=== PATIENT | male | born 1945 | race Caucasian/White ===

== ENCOUNTER → 2022-05-14 14:01 | Outpatient (CLI) | payer MEDICARE, SELFPAY ==
--- NOTE | ~2022-05-14 | XR_ITS ---
XR hip RT min 2V DATE: 05/14/2022 14:17 INDICATION: Right hip pain for 3 months. No injury. TECHNIQUE: AP and lateral views of right hip COMPARISON: None FINDINGS: There appears to be an inferolaterally displaced approximately 1.5 x 3.5 cm fracture fragme nt of the inferior aspect of the right acetabulum. CT pelvis examination is recommended for more defi nitive evaluation. The fracture margins are smooth, suggesting this is likely chronic. No recent right hip fracture or dislocation is noted otherwise. Normal alignment at the pubic symphysis and sacroiliac joints. No evidence of avascular necrosis or bone destruction of the right femoral head. IMPRESSION: Possible chronic inferolaterally displaced right acetabular fracture; recommend CT pelvis for more definitive evaluation Reviewed, dictated and finalized at location B. TROSTATIC PAINTER IMPRESSION: Possible chronic inferolaterally displaced right acetabular fractur e; recommend CT pelvis for more definitive evaluation
== END ==
PROVIDERS: PCP Internal Medicine; Visit Provider Clinical Nurse Specialist
DX: M25.551 Pain in right hip (principal)
CPT/HCPCS: 73502

== ENCOUNTER → 2022-05-23 08:35 | Outpatient (CLI) | payer MEDICARE, SELFPAY ==
--- NOTE | ~2022-05-23 | CT_ITS ---
Noncontrast CT scan of the pelvis CLINICAL HISTORY: Acetabular fracture TECHNIQUE: Axial noncontrast imaging of the pelvis was performed. Sagittal and coronal reformatted im ages were constructed. Dose reduction technique was used on this scan by utilizing automated exposure control and iterative reconstruction technique. FINDINGS: No acute fracture or dislocation is seen. There is a somewhat triangular area of ossificati on just anterior inferior to the right humeral head, which correlates with the plain radiographic fin ding. This is well corticated, and chronic in appearance. There is no defect or asymmetry of the righ t acetabulum as compared to the left side. Bilateral hip joint spaces are preserved. No joint effusio n. No other soft tissue abnormality seen. Small lipoma noted within the right adductor jonathan muscle. Vi sualized musculature is otherwise unremarkable. No fluid collection evident. 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 There is no defect or asymmetry of the right acetabulum as compared to the left side. No acute fracture or dislocation. Small intramuscular lipoma in the right adductor musculature, as noted above. Reviewed, dictated and finalized at location . 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 T here is no defect or asymmetry of the right acetabulum as compared to the left side. No acute fracture or dislocation. Small intramuscular lipoma in the right adductor musculature, as noted above.
== END ==
PROVIDERS: PCP Internal Medicine; Visit Provider Clinical Nurse Specialist
DX: S32.409A Unspecified fracture of unspecified acetabulum, initial encounter for closed fracture (principal); X58.XXXA Exposure to other specified factors, initial encounter
CPT/HCPCS: 72192

== ENCOUNTER 2022-11-11 09:06 | Outpatient (CLI) | payer MEDICARE, SELFPAY ==
[2022-11-11 20:26] LABS: Basophils Percent Auto 0.5 % (0.2-1.2); Eosinophils Absolute Auto 0.3 K/mm3 (0-0.3); Hematocrit 46.8 % (42.0-52.0); Hemoglobin 15.3 g/dL (14.0-18.0); Immature Granulocyte Absolute 0.03 K/mm3 (0.00-0.031); Immature Granulocyte Percent A 0.4 % (0-0.5); Lymphocytes Absolute Auto 1.64 K/mm3 (0.9-3.2); Mean Corpuscular HGB Conc 32.7 g/dl (32-36); Mean Corpuscular Hemoglobin 31.8 pg (26-34); Mean Corpuscular Volume 97.3 fl (80-100); Mean Platelet Volume 12.5 fl (7.4-10.4); Monocytes Absolute Auto 0.8 K/mm3 (0.1-0.6); Monocytes Percent Auto 10.5 % (2.6-8.5); Neutrophils Percent Auto 63.6 % (45.5-73.1); Platelet Count Result 149 k/mm3 (150-375); Red Blood Count 4.81 M/mm3 (4.6-6.20); Red Cell Distribution Width 13.6 % (11.5-14.5); White Blood Count 7.8 K/mm3 (4.5-10.0)
[2022-11-11 21:35] LABS: Alanine Aminotransferase 31 U/L (6-50); Albumin Level 4.4 g/dL (3.5-5.1); Alkaline Phosphatase 92 U/L (38-126); Anion Gap 6 mmol/L (8-16); Aspartate Amino Transferase 37 U/L (17-59); Bilirubin,Total 1.2 mg/dL (0.2-1.3); Blood Urea Nitrogen 16 mg/dL (9-20); Calcium 9.6 mg/dL (8.4-10.2); Carbon Dioxide 31 mmol/L (22-30); Chloride 103 mmol/L (98-107); Cholesterol 167 mg/dL (0-200); Estimated Glomerular Filt Rate > 60; Glucose 102 mg/dL (65-110); HDL Direct 44 mg/dL; Potassium 4.2 mmol/L (3.4-5.0); Sodium 140 mmol/L (137-145); Triglycerides 136 mg/dL (<150)
[2022-11-11 21:53] LABS: LDL Cholesterol Direct 88 mg/dL
[2022-11-11 22:09] LABS: Prostate Specific Antigen 1.2 ng/mL (< OR = 4.0)
== END 2022-11-11 09:07 | disposition home or self-care (01) ==
LOC: ANHGOSHLAB 09:10
PROVIDERS: PCP Nurse Practitioner; Visit Provider Nurse Practitioner
DX: R53.83 Other fatigue (principal); I10 Essential (primary) hypertension; Z12.5 Encounter for screening for malignant neoplasm of prostate; E78.5 Hyperlipidemia, unspecified
CPT/HCPCS: 36415; 80053; 80061; 82607; 82728; 84153; 84443; 85025; G0103

== ENCOUNTER 2023-03-17 08:55 | Outpatient (CLI) | payer MEDICARE, SELFPAY ==
[2023-03-17 19:41] LABS: Appearance Urine Clear (Clear); Bilirubin Urine Negative (Negative); Blood Urine Negative (Negative); Color Urine Yellow (Yellow); Glucose Urine UA Negative (Negative); Ketones Urine Negative (Negative); Leukocyte Esterase Ur Negative LEU/UL (NEGATIVE); Nitrate Urine Negative (Negative); Protein Urine Negative (Negative); Specific Grav Ur 1.018 (1.001-1.035); pH Urine 6.5 (5.0-9.0)
[2023-03-17 19:50] LABS: Add Urine Microscopic? NO
[2023-03-17 19:51] LABS: Basophils Absolute Auto 0.1 K/mm3 (0.0-0.1); Basophils Percent Auto 0.7 % (0.2-1.2); Eosinophils Absolute Auto 0.2 K/mm3 (0-0.3); Eosinophils Percent Auto 2.5 % (0-4.4); Hematocrit 48.3 % (42.0-52.0); Hemoglobin 15.6 g/dL (14.0-18.0); Immature Granulocyte Absolute 0.02 K/mm3 (0.00-0.031); Immature Granulocyte Percent A 0.2 % (0-0.5); Lymphocytes Absolute Auto 1.45 K/mm3 (0.9-3.2); Lymphocytes Percent Auto 17.3 % (18.3-44.2); Mean Corpuscular HGB Conc 32.3 g/dl (32-36); Mean Corpuscular Hemoglobin 31.8 pg (26-34); Mean Corpuscular Volume 98.4 fl (80-100); Mean Platelet Volume 12.4 fl (7.4-10.4); Monocytes Absolute Auto 0.8 K/mm3 (0.1-0.6); Monocytes Percent Auto 9.2 % (2.6-8.5); Neutrophils Absolute Auto 5.9 K/mm3 (1.3-6.7); Neutrophils Percent Auto 70.1 % (45.5-73.1); Platelet Count Result 150 k/mm3 (150-375); Red Blood Count 4.91 M/mm3 (4.6-6.20); Red Cell Distribution Width 13.3 % (11.5-14.5); White Blood Count 8.4 K/mm3 (4.5-10.0)
[2023-03-17 20:26] LABS: Alanine Aminotransferase 27 U/L (6-50); Albumin Level 4.4 g/dL (3.5-5.1); Alkaline Phosphatase 82 U/L (38-126); Anion Gap 9 mmol/L (8-16); Aspartate Amino Transferase 35 U/L (17-59); Bilirubin,Total 1.2 mg/dL (0.2-1.3); Blood Urea Nitrogen 17 mg/dL (9-20); Calcium 10.6 mg/dL (8.4-10.2); Carbon Dioxide 33 mmol/L (22-30); Chloride 102 mmol/L (98-107); Estimated Glomerular Filt Rate > 60; Glucose 118 mg/dL (65-110); Potassium 4.2 mmol/L (3.4-5.0); Sodium 144 mmol/L (137-145)
[2023-03-17 20:36] LABS: Erythrocyte Sedimentation Rate 13 mm/hr (0-20)
[2023-03-17 21:22] LABS: Folic Acid > 20.0 ng/mL (2.76->20)
== END 2023-03-17 08:56 | disposition home or self-care (01) ==
PROVIDERS: PCP Internal Medicine; Visit Provider Internal Medicine
DX: R41.3 Other amnesia (principal); I10 Essential (primary) hypertension; R73.9 Hyperglycemia, unspecified
CPT/HCPCS: 36415; 80053; 81003; 82607; 82746; 83036; 84443; 85025; 85652

== ENCOUNTER 2023-04-08 09:59 | Outpatient (CLI) | payer MEDICARE, SELFPAY ==
--- NOTE | ~2023-04-08 | MR_ITS ---
MRI of the brain Clinical History: Amnesia Technique: Axial and sagittal T1-weighted images were acquired. These were followed by axial T2-weigh holly, diffusion weighted, gradient, and FLAIR images. Findings: There is no acute infarct, intracranial hemorrhage, or mass lesion. There are mild chronic white matter changes in the periventricular white matter bilaterally. Ventricles and subarachnoid spaces are unremarkable. Orbits are unremarkable. Paranasal sinuses and m astoid areas are clear. Major intracranial flow voids are intact. Sagittal midline structures are intact. IMPRESSION: Mild chronic microvascular ischemic changes, otherwise unremarkable exam. Reviewed, dictated and finalized at location M. STRIAL DESIGN INTERN
== END 2023-04-08 10:00 ==
LOC: MICIMG 10:00
PROVIDERS: PCP Internal Medicine; Visit Provider Internal Medicine
DX: R41.3 Other amnesia (principal); R90.89 Other abnormal findings on diagnostic imaging of central nervous system
CPT/HCPCS: 70551

== ENCOUNTER 2023-04-11 07:26 | Outpatient (CLI) | payer MEDICARE, SELFPAY ==
--- NOTE | 2023-04-11 | ECHO_ITS ---
Patient Info Name: Ari Ng Age: 77 years : 1945 Gender: Male Ht: 69 in Wt: 235 lbs BSA: 2.32 m2 HR: 79 bpm BP: 195 / 86 mmHg Heart Rhythm: Sinus Rhythm Technical Quality: Good Exam Date: 04/11/2023 8:08 AM Exam Location: Echo Lab Patient Status: Outpatient Admit Date: 04/11/2023 Staff Ordering Physician: Paulo Mai DO Trimming Press Operator: Tammy Ramesh RDCS Attending Provider: Paulo Mai DO Referring Physician: Pau MAURO; Exam Type: CA echo doppler color flow Study Info Indications - murmur Complete two-dimensional, color flow and Doppler transthoracic echocardiogram is performed. Summary 1. Complete two-dimensional, color flow and Doppler transthoracic echocardiogram is performed. 2. Left ventricular chamber dimension is normal. 3. Left ventricular systolic function is normal, estimated at 65-70%. 4. There is mild concentric increased left ventricular wall thickness. 5. The left ventricular diastolic function is grade I diastolic dysfunction. 6. E/e' 12 is mildly elevated. 7. Left atrial chamber dimension is mildly enlarged. 8. There is moderate aortic valve sclerosis. 9. There is trace tricuspid valve regurgitation. 10. No pulmonary hypertension, estimated pulmonary arterial systolic pressure is 19 mmHg. Left Ventricle E/e' 12 is mildly elevated. Left ventricular chamber dimension is normal. Left ventricular systolic function is normal, estimated at 65-70%. There is mild concentric increased left ventricular wall thickness. The left ventricular diastolic function is grade I diastolic dysfunction. Right Ventricle Right ventricular systolic function is normal and with normal TAPSE 2.9 cm. Right ventricular chamber dimension is normal. Left Atria Left atrial chamber dimension is mildly enlarged. Right Atria Right atrial chamber dimension is normal. Aortic Valve The aortic valve is trileaflet. There is moderate aortic valve sclerosis. There is no aortic valve stenosis. There is no aortic valve regurgitation. Pulmonic Valve There is no pulmonic regurgitation. Mitral Valve There is no mitral valve stenosis. There is no mitral valve regurgitation. Tricuspid Valve There is trace tricuspid valve regurgitation. No pulmonary hypertension, estimated pulmonary arterial systolic pressure is 19 mmHg. Pericardium/Pleural There is no pericardial effusion. Inferior Vena Cava Normal inferior vena cava with >50% collapse upon inspiration consistent with normal right atrial pressure, 5 mmHg. Aorta The aortic root size at the sinus of Valsalva is normal. Left Ventricular Outflow Tract Name Value Normal LVOT 2D LVOT Diameter 2.3 cm LVOT Doppler LVOT Peak Gradient 8 mmHg LVOT Mean Gradient 5 mmHg LVOT VTI 35 cm LVOT VTI/AV VTI Ratio 0.8 LVOT Stroke Volume 139 ml LVOT CO 8.3 l/min LVOT CI 3.6 l/min/m2 Mitral Valve Name Value
== END 2023-04-11 07:27 | disposition home or self-care (01) ==
LOC: ANHCARD 07:27
PROVIDERS: PCP Internal Medicine; Visit Provider Internal Medicine
DX: R01.1 Cardiac murmur, unspecified (principal); R93.1 Abnormal findings on diagnostic imaging of heart and coronary circulation; I35.8 Other nonrheumatic aortic valve disorders; I07.1 Rheumatic tricuspid insufficiency
CPT/HCPCS: 93306

== ENCOUNTER 2023-05-05 09:43 | Outpatient (CLI) | payer MEDICARE, SELFPAY | END 2023-05-05 09:44 | disposition home or self-care (01) | LOC: ANHAUDIO 09:43 | PROVIDERS: PCP Internal Medicine; Visit Provider Nurse Practitioner | DX: H90.3 Sensorineural hearing loss, bilateral (principal) | CPT/HCPCS: 92557; 92567 ==

== ENCOUNTER 2023-08-13 01:17 | Day surgery (SDC) | payer MEDICARE, SELFPAY ==
[2023-07-28 13:43] VITALS: BMI 33.0
--- NOTE | 2023-08-13 10:06 | WPDANESEPPF ---
Anes - Initial Pre Proc Eval Procedure: Operation Date: 08/13/23 11:30 Proposed Procedures p Screening Colonoscopy - Eduardo Burnett MD Date/Time: 08/13/23 10:06 Surgeon: Eduardo Burnett MD Pre Op Diagnosis: Personal hx colon polyps Patient Data Age: 77 Gender: M Height: 1.78 m Weight: 104.5 kg Allergies Allergy/AdvReac Type Severity Reaction Status Date / Time Penicillins Allergy Unknown Unknown Verified 08/13/23 10:10 Tetanus Vaccines and Toxoid Allergy Unknown Unknown Verified 08/13/23 10:10 Home Medications Medication Instructions Recorded Confirmed Type aspirin 81 mg tablet,delayed 81 mg PO DAILY 05/05/19 08/13/23 History release (Adult Low Dose Aspirin) guanfacine 1 mg tablet 1 mg PO DAILY 05/05/19 08/13/23 History rosuvastatin 20 mg tablet 20 mg PO DAILY 05/05/19 08/13/23 History losartan 100 mg tablet 100 mg PO DAILY 05/25/20 08/13/23 History ascorbic acid (vitamin C) 1,000 mg 2 g PO DAILY 05/14/22 08/13/23 History capsule cholecalciferol (vitamin D3) 125 250 mcg PO DAILY 05/14/22 08/13/23 History mcg (5,000 unit) capsule sodium,potassium,mag sulfates 17.5 See Rx Instructions PO .COMPLEX 02/19/23 08/13/23 Rx gram-3.13 gram-1.6 gram oral soln #354 mL (Suprep Bowel Prep Kit) nebivolol 10 mg tablet (Bystolic) 10 mg PO DAILY #30 tabs 03/17/23 08/13/23 Rx mecobalamin (vitamin B12) 5,000 5,000 mcg PO DAILY 06/01/23 08/13/23 History mcg disintegrating tablet zinc acetate 50 mg (zinc) capsule 50 mg PO DAILY 06/01/23 08/13/23 History spironolactone 25 mg tablet 25 mg PO DAILY #90 tabs 08/05/23 08/13/23 Rx Patient hx anesthesia problems: none Family hx anesthesia problems: none Results Review: All pre-operative results and documents have been reviewed as part of the pre-operative evaluation. [facility] Past Medical History Medical History Atypical mole Erectile dysfunction Hyperlipidemia Hypertension Obstructive sleep apnea Skin infection Family History Family History Father Hypertension Family history of kidney disease Mother FH: ovarian cancer Other Heart disease High cholesterol Social History Social History (Updated 06/01/23 @ 08:55 by Brandie Coles CMA) Smoking status: Former smoker Tobacco type: cigarettes Alcohol intake: never Substance use: never Substance use type: does not use Do You Feel Safe in your Home?: Yes Lack of Transportation: No Lack of Food: Never True Current Housing: I Have Housing Concerned About Future Housing: No Difficulty Paying Gas/Electric Bills: No Difficulty Paying for Meds: No Currently Unemployed: No Education: Trade/Vocational Certificate Difficulty w/ Childcare or Family Care: No Living arrangements: with family Spiritual care concerns: No Anes - Eval Final PreProcedure Day of Procedure 08/13/23 10:06 Patient weight: obese Heart: regular rate and rhythm Lungs: clear to auscultation Airway: Mallampati scale class II Neurological: alert and oriented Last oral intake: >/= 8 hours ASA classification: III Emergent: no Anesthetic plan: proceed Anesthesia type and monitoring: general GIVS and standard monitoring Results Review: All pre-operative results and documents have been reviewed as part of the pre-operative evaluation. Informed Consent: The patient's anesthetic plan and its attendant risks and benefits were discussed with the patient/family/POA. Questions were solicited and answers provided to the satisfaction of the patient/family/POA.
[2023-08-13 10:13] VITALS: BP 179/78; PULSE 81; RESP 18; TEMP 36.1; O2SAT 97; BMI 32.1
--- NOTE | 2023-08-13 10:21 | PM.HPGS ---
History of Present Illness History of Present Illness Consent: Risks, benefits, and alternatives have been discussed and questions answered. Patient agrees to proceed with procedure. Chief complaint: Personal hx colon polyps Narrative: Ari Ng is a 77 year old male here for colonoscopy, had polyps previously Review of Systems Review of Systems: All systems reviewed & are unremarkable except as noted in HPI and below PMFSH Past Medical History Medical History Atypical mole Erectile dysfunction Hyperlipidemia Hypertension Obstructive sleep apnea Skin infection Family History Family History Father Hypertension Family history of kidney disease Mother FH: ovarian cancer Other Heart disease High cholesterol Social History Social History (Updated 06/01/23 @ 08:55 by Brandie Coles [facility]) Smoking status: Former smoker Tobacco type: cigarettes Alcohol intake: never Substance use: never Substance use type: does not use Do You Feel Safe in your Home?: Yes Lack of Transportation: No Lack of Food: Never True Current Housing: I Have Housing Concerned About Future Housing: No Difficulty Paying Gas/Electric Bills: No Difficulty Paying for Meds: No Currently Unemployed: No Education: Trade/Vocational Certificate Difficulty w/ Childcare or Family Care: No Living arrangements: with family Spiritual care concerns: No Meds Home Medications and Allergies Home Medications Medication Instructions Recorded Confirmed Type aspirin 81 mg tablet,delayed 81 mg PO DAILY 05/05/19 08/13/23 History release (Adult Low Dose Aspirin) guanfacine 1 mg tablet 1 mg PO DAILY 05/05/19 08/13/23 History rosuvastatin 20 mg tablet 20 mg PO DAILY 05/05/19 08/13/23 History losartan 100 mg tablet 100 mg PO DAILY 05/25/20 08/13/23 History ascorbic acid (vitamin C) 1,000 mg 2 g PO DAILY 05/14/22 08/13/23 History capsule cholecalciferol (vitamin D3) 125 250 mcg PO DAILY 05/14/22 08/13/23 History mcg (5,000 unit) capsule sodium,potassium,mag sulfates 17.5 See Rx Instructions PO .COMPLEX 02/19/23 08/13/23 Rx gram-3.13 gram-1.6 gram oral soln #354 mL (Suprep Bowel Prep Kit) nebivolol 10 mg tablet (Bystolic) 10 mg PO DAILY #30 tabs 03/17/23 08/13/23 Rx mecobalamin (vitamin B12) 5,000 5,000 mcg PO DAILY 06/01/23 08/13/23 History mcg disintegrating tablet zinc acetate 50 mg (zinc) capsule 50 mg PO DAILY 06/01/23 08/13/23 History spironolactone 25 mg tablet 25 mg PO DAILY #90 tabs 08/05/23 08/13/23 Rx Allergies Allergy/AdvReac Type Severity Reaction Status Date / Time Penicillins Allergy Unknown Unknown Verified 08/13/23 10:10 Tetanus Vaccines and Toxoid Allergy Unknown Unknown Verified 08/13/23 10:10 Vital Signs Vital Signs - 24 hr 08/13/23 10:13 Temperature 96.9 F L Pulse Rate 81 Respiratory Rate 18 Blood Pressure 179/78 H Pulse Oximetry 97 Oxygen Delivery Room Air Exam Const: General: comfortable and no acute distress HENMT: Face/Nose/Sinus: Normal nares present Eyes: General: appearance normal, both eyes and all related structures Neck: Neck: no JVD Resp: Auscultation: clear to auscultation bilaterally Cardio: Rate: regular rate Rhythm: regular rhythm GI: Inspection: non-distended GI Palp: Yes Soft to palpation Skin: General skin exam: normal color Neuro: General: gait normal Speech: normal speech Extrem: General: normal to inspection Psych: Mental Status: mental status grossly normal Assessment and Plan Assessment and plan (1) Personal history of colonic polyps: Code(s): Z86.010 - Personal history of colonic polyps Status: Acute Assessment and Plan: colonoscopy
[2023-08-13] MEDS: LACTATED RINGERS 1,000 ML 150 ML IV CONT (10:42)
[2023-08-13 10:43] VITALS: BP 112/60; PULSE 78; RESP 20; O2SAT 96
[2023-08-13 10:53] VITALS: BP 128/67; PULSE 74; RESP 20; O2SAT 99
[2023-08-13 11:03] VITALS: BP 135/67; PULSE 68; RESP 20; O2SAT 99
== END 2023-08-13 11:12 | disposition home or self-care (01) ==
PROVIDERS: PCP Internal Medicine; Visit Provider Internal Medicine Gastroenterology
PROC: 0DJD8ZZ Inspection of Lower Intestinal Tract, Via Natural or Artificial Opening Endoscopic (ICD-10-PCS; CPT 45378; principal; 2023-08-13 11:30)
DX: Z12.11 Encounter for screening for malignant neoplasm of colon (principal); D12.5 Benign neoplasm of sigmoid colon; D12.2 Benign neoplasm of ascending colon; K64.8 Other hemorrhoids; K57.30 Diverticulosis of large intestine without perforation or abscess without bleeding; I10 Essential (primary) hypertension; E78.5 Hyperlipidemia, unspecified; G47.33 Obstructive sleep apnea (adult) (pediatric); N52.9 Male erectile dysfunction, unspecified; E66.9 Obesity, unspecified; Z68.32 Body mass index [BMI] 32.0-32.9, adult; Z79.82 Long term (current) use of aspirin; Z87.891 Personal history of nicotine dependence; Z80.41 Family history of malignant neoplasm of ovary; Z82.49 Family history of ischemic heart disease and other diseases of the circulatory system
CPT/HCPCS: 45385; 88305; J2704; J7120

== ENCOUNTER 2023-10-12 10:13 | Outpatient (CLI) | payer MEDICARE, SELFPAY ==
[2023-10-12 13:44] LABS: Alanine Aminotransferase 21 U/L (6-50); Albumin Level 4.1 g/dL (3.5-5.1); Alkaline Phosphatase 80 U/L (38-126); Anion Gap 7 mmol/L (4-12); Aspartate Amino Transferase 41 U/L (17-59); Bilirubin,Total 1.4 mg/dL (0.2-1.3); Blood Urea Nitrogen 13 mg/dL (9-20); Calcium 9.8 mg/dL (8.4-10.2); Carbon Dioxide 29 mmol/L (22-30); Chloride 104 mmol/L (98-107); Estimated Glomerular Filt Rate > 60; Glucose 172 mg/dL (65-110); Potassium 3.8 mmol/L (3.4-5.0); Sodium 140 mmol/L (137-145)
[2023-10-12 14:56] LABS: Hemoglobin A1C 5.9 % (<5.7)
== END 2023-10-12 10:14 | disposition home or self-care (01) ==
LOC: ANHGOSHLAB 10:15
PROVIDERS: PCP Internal Medicine; Visit Provider Internal Medicine
DX: E83.52 Hypercalcemia (principal); I10 Essential (primary) hypertension; R73.03 Prediabetes; R73.9 Hyperglycemia, unspecified
CPT/HCPCS: 36415; 80053; 82306; 83036

== ENCOUNTER 2024-02-22 08:44 | Outpatient (CLI) | payer MEDICARE, SELFPAY ==
[2024-02-22 14:18] LABS: Basophils Absolute Auto 0.1 K/mm3 (0.0-0.1); Basophils Percent Auto 0.6 % (0.2-1.2); Eosinophils Absolute Auto 0.2 K/mm3 (0-0.3); Eosinophils Percent Auto 2.7 % (0-4.4); Hematocrit 48.7 % (42.0-52.0); Hemoglobin 15.8 g/dL (14.0-18.0); Immature Granulocyte Absolute 0.03 K/mm3 (0.00-0.031); Immature Granulocyte Percent A 0.4 % (0-0.5); Immature Platelet Fraction Pct 16.2 % (0.9-11.2); Lymphocytes Absolute Auto 1.34 K/mm3 (0.9-3.2); Lymphocytes Percent Auto 16.5 % (18.3-44.2); Mean Corpuscular HGB Conc 32.4 g/dl (32-36); Mean Corpuscular Hemoglobin 31.9 pg (26-34); Mean Corpuscular Volume 98.4 fl (80-100); Mean Platelet Volume 13.1 fl (7.4-10.4); Monocytes Absolute Auto 0.7 K/mm3 (0.1-0.6); Monocytes Percent Auto 8.3 % (2.6-8.5); Neutrophils Absolute Auto 5.8 K/mm3 (1.3-6.7); Neutrophils Percent Auto 71.5 % (45.5-73.1); Platelet Count Result 139 k/mm3 (150-375); Red Blood Count 4.95 M/mm3 (4.6-6.20); Red Cell Distribution Width 13.9 % (11.5-14.5); White Blood Count 8.1 K/mm3 (4.5-10.0)
[2024-02-22 15:00] LABS: Hemoglobin A1C 6.2 % (<5.7)
[2024-02-22 15:37] LABS: Alanine Aminotransferase 22 U/L (6-50); Albumin Level 4.3 g/dL (3.5-5.1); Alkaline Phosphatase 70 U/L (38-126); Anion Gap 11 mmol/L (4-12); Aspartate Amino Transferase 50 U/L (17-59); Bilirubin,Total 1.1 mg/dL (0.2-1.3); Blood Urea Nitrogen 19 mg/dL (9-20); Calcium 9.5 mg/dL (8.4-10.2); Carbon Dioxide 32 mmol/L (22-30); Chloride 100 mmol/L (98-107); Estimated Glomerular Filt Rate > 60; Glucose 78 mg/dL (65-110); Sodium 143 mmol/L (137-145)
[2024-02-22 17:54] LABS: Folic Acid > 20.0 ng/mL (2.76->20)
== END 2024-02-22 08:45 | disposition home or self-care (01) ==
LOC: ANHGOSHLAB 08:45
PROVIDERS: PCP Internal Medicine; Visit Provider Internal Medicine
DX: F02.A0 Dementia in other diseases classified elsewhere, mild, without behavioral disturbance, psychotic disturbance, mood disturbance, and anxiety (principal); G30.0 Alzheimer's disease with early onset; I10 Essential (primary) hypertension; I50.30 Unspecified diastolic (congestive) heart failure; R73.03 Prediabetes; F02.80 Dementia in other diseases classified elsewhere, unspecified severity, without behavioral disturbance, psychotic disturbance, mood disturbance, and anxiety; R73.9 Hyperglycemia, unspecified
CPT/HCPCS: 36415; 80053; 82306; 82607; 82746; 83036; 85025; 85055

== ENCOUNTER 2024-10-25 09:30 | Outpatient (CLI) | payer MEDICARE, SELFPAY ==
--- OUTSIDE RECORDS SUMMARY | 2024-10-25 09:40 | XMS_ITS | Clinical Summary ---
Author Organization [facility] [address] Address [address] [place] [address] Care Team Providers Care Afterschool Name Role Phone Paulo Mai DO Primary Care Provider [phone]- [phone] Allergies Active Allergy Reactions Criticality Noted Date Comments Penicillins Tetanus Vaccines And Toxoid Medications spironolactone (ALDACTONE) 25 mg tablet take 1 tablet by oral route every day 0 0 07/25/2015 Active ascorbic acid (vitamin C) 100 mg tablet take one talet once daily 0 0 06/25/2016 Active cholecalciferol (VITAMIN D3) 5,000 unit tablet take one tablet once daily 0 0 06/25/2016 Active aspirin 81 mg tablet Take 1 tablet (81 mg total) by mouth daily Active zinc 50 mg tablet Take 1 capsule by mouth daily Active nebivoloL (BYSTOLIC) 10 mg tablet Take 1 tablet (10 mg total) by mouth daily Active cyanocobalamin (Vitamin B-12) 1,000 mcg tabletIndicatio ns:Prevention of Vitamin B12 Deficiency Take 1 tablet (1,000 mcg total) by mouth daily Active losartan (COZAAR) 100 mg tablet TAKE 1 TABLET(100 MG) BY MOUTH DAILY 90 tablet 1 06/27/2024 Active guanFACINE ER (INTUNIV) 1 mg tablet extended release 24 hr TAKE 1 TABLET(1 MG) BY MOUTH EVERY NIGHT 90 tablet 08/05/2024 Active Active Problems Problem Noted Date Diagnosed Date Alzheimer's disease with late onset 08/06/2023 Assessment & Plan (05/05/2024 3:44 PM FRONT DESK ASSISTANT): Overall, stable cognitive testing. Family and patient are not interested in anti-amyloid therapies, acetylcholinesterase inhibitors, or any studies. He is driving and only when his is in the car with him. Discussed how wearing his hearing aids are essential, especially to memory. He has ongoing anxiety. When asked if he would like to trial a low dose antidepressant, he declined at this time. His blood pressure was significantly elevated today. He denies any symptoms of hypertensive crisis. He and family state he has white coat syndrome. Follow-up in 6 months or sooner if need be. QUYEN (obstructive sleep apnea) 05/27/2022 Encounters Date Type Department Care Team Description 08/17/2024 10:15 AM CDT Office Visit [facility] Sleep Medicine at [address] [place] [address] Josefa Walker MD Obstructive sleep apnea (Primary Dx); Hypersomnia; Obesity, unspecified class, unspecified obesity type, unspecified whether serious comorbidity present from Last 3 Months Surgical History Surgery Date Site/Laterality Comments HERNIA REPAIR Hernia repair Medical History Medical History Date Comments Hypertension Hypertension Hx Other Medical HLP Family History Medical History Relation Name Comments Kidney disease Father 2 Renal disease ; Cause of : Renal disease Ovarian cancer Mother 2 Cancer, ovari an; Cause of : Cancer, ovarian Relation Name Status Comments Father 1 (Age 88) Father 2 Mother 1 (Age 69) Mother 2 Social History Tobacco Use Types Packs/Day Years Used Date Smoking Tobacco: Never Smokeless Tobacco: Never Tobacco Cessation:Counseling Given: Not Answered Alcohol Use Standard Drinks/Week Comments No 0 (1 standard drink = 0.6 oz pur e alcohol) Sex and Gender Information Value Date Recorded Sex Assigned at Not on file Legal Sex Male 3:58 AM FRONT DESK ASSISTANT Gender Identity Not on file Sexual Orientation Not on file Obstetrics History Last Filed Vital Signs Vital Sign Reading Time Taken Comments Blood Pressure 141/74 08/17/2024 9:52 AM CDT Pulse 80 08/17/2024 9:52 AM CDT Temperature 36.3 C (97.3 F) 05/05/2024 2:37 PM FRONT DESK ASSISTANT Respiratory Rate 12 10/15/2016 10:54 AM CDT Oxygen Saturation 96% 08/17/2024 9:52 AM CDT Inhaled Oxygen Concentration - - Weight 99.1 kg (218 lb 6.4 oz) 08/17/2024 9:52 A M CDT Height 175.3 cm (5' 9.02) 08/17/2024 9:52 AM CD T Body Mass Index 32.24 08/17/2024 9:52 AM CDT Plan of Treatment Health Maintenance Due Date Last Done Comments Depression Screening 1945 Fall Risk Assessment 1945 Hepatitis C Screening 1945 DTaP/Tdap/Td Vaccine (1 - Tdap) 11/29/1958 Hepatitis B Screening 11/29/1965 Pneumococcal vaccine 65+ (1 of 1 - PCV) 11/29/1997 Zoster Vaccine (1 of 2) 11/29/1997 Abdominal Aortic Aneurysm (AAA) Screen 11/29/2012 Well Visit 65+ 11/29/2012 Influenza Vaccine (Season Ended) 2024 Insurance [facility] Address: [address] [address] [facility] Address: [facility] [address] [place] [address] [facility] Address: [facility] [address] [place] [address] Care Teams Afterschool Relationship Specialty Start Date End Date Paulo Mai DO PCP - General 07/25/16
--- OUTSIDE RECORDS SUMMARY | 2024-10-25 09:40 | XMS_ITS | Referral Summary ---
Author Organization [facility] [place] [address] Address [address] [place] [address] Care Team Providers Care City Plant Supervisor Name Role Phone Paulo Mai DO Primary Care Provider [phone]- [phone] Encounters Date Type Department Care Team Description 08/17/2024 10:15 AM CDT Office Visit [facility] Sleep Medicine at [address] [place] [address] Josefa Walker MD Obstructive sleep apnea (Primary Dx); Hypersomnia; Obesity, unspecified class, unspecified obesity type, unspecified whether serious comorbidity present from Last 3 Months Allergies Active Allergy Reactions Criticality Noted Date [...] 08/06/2023 Assessment & Plan (05/05/2024 3:44 PM DECKHAND FISHING VESSEL): Overall, stable cognitive testing. Family and patient [...] need be. QUYEN (obstructive sleep apnea) 05/27/2022 Social History Tobacco Use Types Packs/Day Years Used Date Smoking Tobacco: Never Smokeless Tobacco: Never Tobacco Cessation:Counseling Given: Not Answered Alcohol Use Standard Drinks/Week Comments No 0 (1 standard drink = 0.6 oz pur e alcohol) Sex and Gender Information Value Date Recorded Sex Assigned at Not on file Legal Sex Male 3:58 AM DECKHAND FISHING VESSEL Gender Identity Not on file Sexual Orientation Not on file Last Filed Vital Signs Vital Sign Reading Time Taken Comments Blood Pressure 141/74 08/17/2024 9:52 AM CDT Pulse 80 08/17/2024 9:52 AM CDT Temperature 36.3 C (97.3 F) 05/05/2024 2:37 PM DECKHAND FISHING VESSEL Respiratory Rate 12 10/15/2016 10:54 AM CDT Oxygen Saturation 96% 08/17/2024 9:52 AM CDT Inhaled Oxygen Concentration - - Weight 99.1 kg (218 lb 6.4 oz) 08/17/2024 9:52 A M CDT Height 175.3 cm (5' 9.02) 08/17/2024 9:52 AM CD T Body Mass Index 32.24 08/17/2024 9:52 AM CDT Plan of Treatment Not on file Insurance MEDICARE ADVANTAGE MEDICARE ADVANTAGE [facility] MEDICARE ADVANTAGE Care Teams City Plant Supervisor Relationship Specialty Start Date End Date Paulo Mai DO [facility] - General 07/25/16
--- OUTSIDE RECORDS SUMMARY | 2024-10-25 09:40 | XMS_ITS | Encounter Summary ---
Author Organization [facility] Address [address] [facility] [address] [place] [address] Care Team Providers Care Wire Basket Maker Name Role Phone Paulo Mai DO Primary Care Provider [phone]- [phone] Paulo Mai DO Primary Care Provider +1- [phone] Encounter Details Date Type Department Care Team (Late st Contact Info) Description 06/18/2016 Orders Only [facility] ProviderDago MD [address] [place] [address] Social History Tobacco Use Types Packs/Day Years Used Date Smoking Tobacco: Some Days Alcohol Use Standard Drinks/Week Comments No 0 (1 standard drink = 0.6 oz pur e alcohol) Sex and Gender Information Value Date Recorded Sex Assigned at Not on file Legal Sex Male 3:58 AM GRADUATE TEACHER EDUCATION Gender Identity Not on file Sexual Orientation Not on file documented as of this encounter Plan of Treatment Not on file documented as of this encounter Procedures Procedure Name Priority Date/Time Associated Diagnosis Comments CARDIOLOGY REPORT 06/18/2016 documented in this encounter Results * CARDIOLOGY REPORT (06/18/2016) Anatomical Region Laterality Modality Other Narrative 06/18/2016 Ordered by an unspecified provider. Historical Provider [facility] MATIAS MEDINA Final Result documented in this encounter Visit Diagnoses Not on filedocumented in this encounter Care Teams Wire Basket Maker Relationship Specialty Start Date End Date Paulo Mai DO PCP - General 3/31/17 Paulo Mai DO PCP - General 07/25/15 07/24/16 documented as of this encounter
[2024-10-25 15:41] LABS: Alanine Aminotransferase 19 U/L (6-50); Albumin Level 3.9 g/dL (3.5-5.1); Alkaline Phosphatase 66 U/L (38-126); Anion Gap 8 mmol/L (4-12); Aspartate Amino Transferase 49 U/L (17-59); Bilirubin,Total 1.0 mg/dL (0.2-1.3); Blood Urea Nitrogen 14 mg/dL (9-20); Calcium 9.4 mg/dL (8.4-10.2); Carbon Dioxide 29 mmol/L (22-30); Chloride 105 mmol/L (98-107); Estimated Glomerular Filt Rate > 60; Glucose 97 mg/dL (65-110); Potassium 3.9 mmol/L (3.4-5.0); Sodium 142 mmol/L (137-145); Total Protein 6.8 g/dL (6.3-8.2)
[2024-10-25 16:58] LABS: Hematocrit 46.3 % (42.0-52.0); Hemoglobin 14.8 g/dL (14.0-18.0); Immature Granulocyte Percent A 0.5 % (0-0.5); Immature Platelet Fraction Pct 14.7 % (0.9-11.2); Lymphocytes Absolute Auto 1.57 K/mm3 (0.9-3.2); Mean Corpuscular HGB Conc 32.0 g/dl (32-36); Mean Corpuscular Hemoglobin 31.3 pg (26-34); Mean Corpuscular Volume 97.9 fl (80-100); Nucleated Red Blood Cells Absolute Auto 0.000 K/mm3 (0.0-0.012); Nucleated Red Blood Cells Perc 0.0 % (0.0-0.2); Platelet Count Result 127 k/mm3 (150-375); Red Blood Count 4.73 M/mm3 (4.6-6.20); White Blood Count 7.9 K/mm3 (4.5-10.0)
== END 2024-10-25 09:31 | disposition home or self-care (01) ==
LOC: ANHGOSHLAB 09:31
PROVIDERS: PCP Internal Medicine; Visit Provider Internal Medicine
DX: R73.9 Hyperglycemia, unspecified (principal); I10 Essential (primary) hypertension; I50.32 Chronic diastolic (congestive) heart failure; D69.6 Thrombocytopenia, unspecified
CPT/HCPCS: 36415; 80053; 85025; 85055

== ENCOUNTER 2024-12-07 09:47 | Outpatient (CLI) | payer MEDICARE, SELFPAY ==
--- OUTSIDE RECORDS SUMMARY | 2024-12-07 09:55 | XMS_ITS | Encounter Summary ---
Author Organization [facility] Address [address] [facility] [address] [place] [address] Care Team Providers Care Mover Name Role Phone Paulo Mai DO Primary Care Provider +1- [phone] Paulo Mai DO Primary Care Provider +1- [phone] Encounter Details Date Type Department Care Team (Late st Contact Info) Description 06/18/2016 Orders Only [facility] ProviderDago MD [address] [place] [address] Social History Tobacco Use Types Packs/Day Years Used Date Smoking Tobacco: Some Days Alcohol Use Standard Drinks/Week Comments No 0 (1 standard drink = 0.6 oz pur e alcohol) Sex and Gender Information Value Date Recorded Sex Assigned at Not on file Legal Sex Male 3:58 AM AUTOMOTIVE VEHICLE INSPECTOR Gender Identity Not on file Sexual Orientation [...] on filedocumented in this encounter Care Teams Mover Relationship Specialty Start Date End Date Paulo Mai DO PCP - General 3/31/17 Paulo Mai DO PCP - General 07/25/15 07/24/16 documented as of this encounter
--- OUTSIDE RECORDS SUMMARY | 2024-12-07 09:55 | XMS_ITS | Clinical Summary ---
Author Organization [facility] [address] Address [address] [place] [address] Care Team Providers Care Open Shank Coverer Name Role Phone Paulo Mai DO Primary Care Provider [phone] Allergies Active Allergy Reactions Criticality Noted Date Comments Penicillins Tetanus Vaccines And Toxoid Medications spironolactone (ALDACTONE) 25 mg tablet take 1 tablet by oral route every day 0 0 6 Active ascorbic acid (vitamin C) 100 mg tablet take one talet once daily 0 0 7 Active cholecalcifero l (VITAMIN D3) 5,000 unit tablet take one tablet once daily 0 0 7 Active aspirin 81 mg tablet Take 1 tablet (81 mg total) by mouth daily Active zinc 50 mg tablet Take 1 capsule by mouth daily Active nebivoloL (BYSTOLIC) 10 mg tablet Take 1 tablet (10 mg total) by mouth daily Active cyanocobalamin (Vitamin B-12) 1,000 mcg tabletIndicati ons:Prevention of Vitamin B12 Deficiency Take 1 tablet (1,000 mcg total) by mouth daily Active losartan (COZAAR) 100 mg tablet TAKE 1 TABLET(100 MG) BY MOUTH DAILY 90 tablet 1 5 Active guanFACINE ER (INTUNIV) 1 mg tablet extended release 24 hr TAKE 1 TABLET(1 MG) BY MOUTH EVERY NIGHT 90 tablet 5 Active guanFACINE ER (INTUNIV) 1 mg tablet extended release 24 hr TAKE 1 TABLET(1 MG) BY MOUTH EVERY NIGHT 90 tablet 5 11/18/19 25 Discontinued Active Problems Problem Noted Date Diagnosed Date Alzheimer's disease with late onset 08/06/2023 Assessment & Plan (05/05/2024 3:44 PM [employer]): Overall, stable cognitive testing. Family and patient [...] need be. QUYEN (obstructive sleep apnea) 05/27/2022 Surgical History Surgery Date Site/Laterality Comments HERNIA [...] on file Legal Sex Male 3:58 AM [employer] Gender Identity Not on file Sexual Orientation Not on file Obstetrics History Last Filed Vital Signs Vital Sign Reading Time Taken Comments Blood Pressure 141/74 08/17/2024 9:52 AM CDT Pulse 80 08/17/2024 9:52 AM CDT Temperature 36.3 C (97.3 F) 05/05/2024 2:37 PM [employer] Respiratory Rate 12 10/15/2016 10:54 AM CDT [...] 11/29/2012 Well Visit 65+ 11/29/2012 Influenza Vaccine (#1) 2024 Insurance MEDICARE [facility] Address: [place] [id number] MEDICARE ADV[facility] Address: [address] [place] [phone] [facility] MEDICARE [facility] MEDICARE Address: [address] [phone] Care Teams Open Shank Coverer Relationship Specialty Start Date End Date Paulo Mai DO PCP - General 07/25/16
[2024-12-07 13:24] LABS: Hematocrit 47.1 % (42.0-52.0); Hemoglobin 15.5 g/dL (14.0-18.0); Immature Granulocyte Percent A 0.4 % (0-0.5); Lymphocytes Absolute Auto 1.62 K/mm3 (0.9-3.2); Mean Corpuscular HGB Conc 32.9 g/dl (32-36); Mean Corpuscular Hemoglobin 31.5 pg (26-34); Mean Corpuscular Volume 95.7 fl (80-100); Nucleated Red Blood Cells Absolute Auto 0.000 K/mm3 (0.0-0.012); Nucleated Red Blood Cells Perc 0.0 % (0.0-0.2); Platelet Count Result 152 k/mm3 (150-375); Red Blood Count 4.92 M/mm3 (4.6-6.20); White Blood Count 8.0 K/mm3 (4.5-10.0)
== END 2024-12-07 09:48 | disposition home or self-care (01) ==
PROVIDERS: PCP Internal Medicine; Visit Provider Internal Medicine
DX: D69.6 Thrombocytopenia, unspecified (principal)
CPT/HCPCS: 36415; 85025